=== PATIENT | female | born 1950 | race Two or more races ===

== ENCOUNTER 2018-12-19 10:35 | Outpatient (CLI) | payer OTHER, MEDICAID ==
[~2018-12-19] VITALS: Ht 165.1 cm; Wt 72.6 kg
[2018-12-19] MEDS ORDERED: Kenalog-40 1ml Vial IARTIC SCH (10:45)
[2018-12-19] MEDS ORDERED: Ketorolac 30mg Inj IM SCH (10:45)
[2018-12-19] MEDS ORDERED: Ketorolac 60mg Inj IM ONE (11:15)
--- NOTE | 2018-12-19 11:31 | General Progress Note ---
Assessment/Plan Problem List: (1) Back pain ICD Codes: M54.9 - Dorsalgia, unspecified SNOMED: [id number] Assessment/Plan toradol and kenelog inj for today Subjective ROS Limited/Unobtainable: Yes Allergies: Coded Allergies: No Known Allergies (Unverified , 12/19/18) Subjective back pain Objective General Appearance: alert EENT: normal ENT inspection Neck: supple Cardiovascular: normal rate Respiratory/Chest: lungs clear Abdomen: normal bowel sounds, non tender, soft Tan Lopez MD Dec 19, 2018 11:31
[2018-12-19 12:06] VITALS: BP 126/78
[2018-12-19] MEDS ORDERED: ARICEPT5 MG ORAL (12:11)
[2018-12-19] MEDS ORDERED: cholesterol med PO (12:11)
[2018-12-19] MEDS ORDERED: IBUPROFEN600 MG ORAL (12:11)
== END 2018-12-19 15:27 | disposition home or self-care (01) ==
LOC: PAN 10:35
DX: M54.9 Dorsalgia, unspecified (principal)